=== PATIENT | female | born 1980 | race Caucasian/White ===

== ENCOUNTER 2016-12-16 19:50 | Emergency (ER) | payer OTHER ==
[2016-12-16 20:00] VITALS: BP 108/71; PULSE 59; RESP 18; TEMP 98.1; O2SAT 100
--- NOTE | 2016-12-16 20:05 | UCPHY ---
H & P Patient Type: Established Chief Complaint Nursing Narrative: sore throat HPI/ROS: HPI CHIEF COMPLAINT: Sore throat HISTORY OF PRESENT ILLNESS: Patient very pleasant 36-year-old female, denies having any significant medical or surgical history except for recent LEEP procedure, she presents to the urgent care with 24 hours of sore throat. She tells me it hurts when she swallows. No change in voice no trismus, no fever, no trouble swelling except for pain. Denies cough denies ear pain. Past Medical History: No significant medical history Past Surgical History: Raul procedure 1 week ago Social History: Denies daily use drugs alcohol tobacco products Family History: noncontributory ROS REVIEW OF SYSTEMS: A comprehensive 10 point review of systems is otherwise negative aside from elements mentioned in the history of present illness. Exam Constitutional appears well nontoxic, triage nursing summary reviewed, vital signs reviewed, awake/alert. Eyes normal conjunctivae and sclera, EOMI, PERRLA. HENT posterior pharynx is erythematous, no exudate, no significant swelling, uvula midline, moist mucus membranes, no epistaxis, neck supple/ no meningismus , no raccoon eyes. Respiratory clear to auscultation bilaterally, normal breath sounds, no respiratory distress, no wheezing. Cardiovascular rate normal, regular rhythm, no murmur, no edema, distal pulses normal. Gastrointestinal soft, non-tender, no rebound, no guarding, normal bowel sounds, no distension, no pulsatile mass. Genitourinary no CVA tenderness. Musculoskeletal no midline vertebral tenderness, full range of motion, no calf swelling, no tenderness of extremities, no meningismus, good pulses, neurovascularly intact. Skin pink, warm, & dry, no rash, skin atraumatic. Neurologic awake, alert and oriented x 3, AAOx3, moves all 4 extremities equally, motor intact, sensory intact, CN II-XII intact, normal cerebellar, normal vision, normal speech. Psychiatric normal mood/affect. Heme/Lymph/Immune no lymphadenopathy. Differential Diagnosis: includes but is not limited to viral pharyngitis, strep pharyngitis, mono, upper respiratory tract infection Medical Decision Making: Plan for this patient have a rapid strep ibuprofen 800 mg given here in the Urgent Care as well as Decadron 8 mg. Will await strep results Re-evaluation: Strep test is positive. Will be given 1st dose of amoxicillin here, ibuprofen, Decadron. Source: Patient - Personal History LMP (Females 10-55): Now Current Tetanus/Diphtheria Vaccine: Yes Tetanus Vaccine Date: WITHIN 10 YRS - Medical/Surgical History Hx Asthma: No Hx Chronic Respiratory Disease: No Hx Diabetes: No Hx Cardiac Disease: No Hx Renal Disease: No Hx Cirrhosis: No Hx Alcoholism: No Hx HIV/AIDS: No Hx Splenectomy or Spleen Trauma: No Other PMH: leap procedure - Family History Significant Family History: No pertinent family hx - Social History Smoking Status: Never smoked Constitutional: Initial Vital Signs Temperature (C) 36.7 C 12/16/16 19:58 Heart Rate 59 L 12/16/16 19:58 Respiratory Rate 18 12/16/16 19:58 Blood Pressure 108/71 12/16/16 19:58 O2 Sat (%) 100 12/16/16 19:58 O2 Delivery Mode Room Air Allergies/Adverse Reactions: No Known Allergies Allergy (Verified 12/16/16 19:55) Home Medications: Medication Instructions Recorded AZITHROMYCIN [Z-PACK] 250 mg PO DAILY #6 tab 12/16/16 Amoxicillin 500 mg PO TID 10 Days 12/16/16 Dexamethasone [Decadron 4 MG (*)] 4 mg PO DAILY #4 tab 12/16/16 Ibuprofen [Motrin (*)] 800 mg PO Q6-8PRN #7 tab 12/16/16 Medical Decision Making - Data Points Laboratory Results: 12/16/16 20:02 Group A Strep Screen POSITIVE H (NEGATIVE) Departure - Departure Disposition: Home, Routine, Self-Care Clinical Impression: Pharyngitis Qualifiers: Pharyngitis/tonsillitis etiology: streptococcus Qualified Code(s): J02.0 - Streptococcal pharyngitis Condition: Good Instructions: Pharyngitis (ED), Strep Throat (ED) Additional Instructions: 1 Stay well-hydrated drink lots of fluids 2. take prescriptions as prescribed. Do not take these on an empty stomach take them with full stomach and lots of water. Referrals: NONE *PRIMARY CARE P,. [Primary Care Provider] - As per Instructions Prescriptions: Amoxicillin 500 mg PO TID 10 Days AZITHROMYCIN [Z-PACK] 250 mg PO DAILY #6 tab Dexamethasone [Decadron 4 MG (*)] 4 mg PO DAILY #4 tab Ibuprofen [Motrin (*)] 800 mg PO Q6-8PRN #7 tab - PQRS PQRS Measurement: n/a
[2016-12-16] MEDS ORDERED: DEXAMETHASONE 4 MG TAB PO ONE (20:11)
[2016-12-16] MEDS ORDERED: IBUPROFEN 800 MG TAB PO ONE (20:11)
[2016-12-16] MEDS ORDERED: IBUPROFEN 200 MG TAB PO ONE (20:20)
[2016-12-16] MEDS ORDERED: IBUPROFEN 600 MG TAB PO ONE (20:20)
== END 2016-12-16 20:28 | disposition home or self-care (01) ==
LOC: CED 19:50
DX: J02.0 Streptococcal pharyngitis (principal)
CPT/HCPCS: 87880-PO; 99214-PO; G0463-PO